=== PATIENT | male | born 1980 | race Caucasian/White ===

== ENCOUNTER → 2016-12-28 | Day surgery (SDC) | payer OTHER ==
[~2016-12-28] MED LIST: APRISO PO; CANASA1000 MG RC; FENTANYL CITRATE/PF 100MCG/2 ML INJ ONE; MIDAZOLAM HCL 2 MG/2 ML VIAL ONE; PANTOPRAZOLE SO40 MG PO; PROPOFOL IV EMULSION 10 MG/ML 20 ML VIAL ONE; simvastatin PO
--- NOTE | 2016-12-29 09:33 | Operative Report ---
DATE OF PROCEDURE: December 28, 2016 REFERRING PHYSICIAN: Dr. Apollo Razo. PROCEDURE PERFORMED: Esophagogastroduodenoscopy with biopsies. INDICATIONS FOR ESOPHAGOGASTRODUODENOSCOPY: History of duodenal adenoma. MEDICATION: Patient was done under MAC. Please see anesthesiologist's note. PROCEDURE: With patient in the left lateral decubitus position, flexible fiberoptic Olympus gastroscope was introduced into the esophagus under direct visualization without any difficulty. The esophagus appeared to be within normal limits. The scope was then advanced with ease into the stomach and there was some patchy erythema noted in the distal body and proximal antrum. Pylorus was of normal contour and shape. Was intubated with ease and the scope was advanced all the way to the 2nd portion of the duodenum. There was a focal prominence of one fold in the proximal 2nd portion that was biopsied, but the rest of the duodenum appeared to be within normal limits as was the duodenal bulb. The scope was then withdrawn back into the stomach and retroflexed and the mucosa overlying the fundus and the cardia appeared to be within normal limits. The scope was then straightened out. The stomach was decompressed. Scope was subsequently withdrawn. Patient tolerated the procedure well. IMPRESSION: 1. Normal esophagus. 2. Gastritis, minimal. 3. Prominent fold proximal 2nd portion, biopsied. PLAN: Follow up histology. Continue Protonix 40 mg 1 p.o. q.a.m. a.c. Job#: [id number] GH cc:APOLLO RAZO MD
== END | disposition home or self-care (01) ==
LOC: OR 15:18
PROVIDERS: ATTEND Internal Medicine Gastroenterology
DX: D13.2 Benign neoplasm of duodenum (principal); K29.70 Gastritis, unspecified, without bleeding; K31.89 Other diseases of stomach and duodenum; K21.9 Gastro-esophageal reflux disease without esophagitis; K27.9 Peptic ulcer, site unspecified, unspecified as acute or chronic, without hemorrhage or perforation
CPT/HCPCS: 43239; J2250

== ENCOUNTER → 2018-03-14 | Day surgery (SDC) | payer OTHER ==
[~2018-03-14] MED LIST changes: +HYOSCYAMINE SULFATE 0.5 MG/ML INJ ONE; +LIDOCAINE HCL 2% LOCAL INJ 5 ML SDV VIAL INJ ONE; +PROPOFOL IV EMULSION 10 MG/ML 50 ML VIAL ONE
--- NOTE | 2018-03-14 20:03 | Operative Report ---
DATE OF PROCEDURE: March 14, 2018 PROCEDURES PERFORMED 1. Esophagogastroduodenoscopy with biopsies. 2. Colonoscopy with biopsies. INDICATIONS FOR ESOPHAGOGASTRODUODENOSCOPY: History of duodenal adenoma, excessive bloating. INDICATIONS FOR COLONOSCOPY: Personal history of colon polyps, history of ulcerative proctitis. MEDICATION: Patient was done under MAC. Please see anesthesiologist's note. PROCEDURE: With the patient in left lateral decubitus position, flexible fiberoptic Olympus gastroscope was introduced into the esophagus under direct visualization without any difficulty. There was some patchy erythema noted in distal esophagus. The scope was then advanced with ease into the stomach. Mucosa overlying the antrum and the body revealed some patchy erythema and [id number] edema and biopsies were obtained and sent to stain for H. pylori. The pylorus was of normal contour and shape and was intubated with ease and the scope was advanced all way to the 2nd portion of the duodenum. Biopsies were obtained from the proximal 2nd portion to rule out sprue. There were 2 focal slightly raised areas in the proximal 2nd portion and those were biopsied. The scope was then withdrawn back into the stomach and retroflexed and mucosa overlying the fundus and the cardia appeared to be within normal limits. The scope was then straightened out. The stomach was decompressed. The scope was subsequently withdrawn. Patient tolerated the procedure well. IMPRESSION 1. Distal esophagitis, mild. 2. Gastritis, biopsied. Biopsies sent to stain for Helicobacter pylori. 3. Rule out sprue. 4. Slightly raised focal areas, proximal 2nd portion, biopsied. PLAN: Follow up histology. Increase Protonix to 40 mg 1 p.o. a.c. b.i.d. Patient was then turned around and after adequate lubrication of the anal canal, a flexible fiberoptic Olympus colonoscope was inserted into the rectum with ease and advanced all the way to the cecum. Prep overall was suboptimal to poor with moderate to large amount of retained fecal materials scattered throughout the colon. Whatever was visualized of the cecum appeared to be within normal limits. The ileocecal valve was intubated. The scope was advanced into the terminal ileum. Biopsies were obtained. The scope was then withdrawn back into the colon. It was then withdrawn slowly. Whatever was visualized of the mucosa overlying the ascending, transverse, and descending as well as the sigmoid grossly appeared to be within normal limits. There was some patchy erythema and low-grade edema noted in the rectum and biopsies were obtained. The scope was then retroflexed into the distal rectum and small internal hemorrhoids were noted, none of which was actively bleeding. The scope was then straightened out and was subsequently withdrawn. Patient tolerated the procedure well. IMPRESSION 1. Suboptimal to poor prep. 2. Proctitis, mild, biopsies obtained. 3. Internal hemorrhoids, none actively bleeding. PLAN: Follow up histology. Continue Canasa suppositories 1000 mg at bedtime and continue Apriso. Patient might benefit from a followup colonoscopy in 2 to 3 years. Job#: [id number] SAVI
== END | disposition home or self-care (01) ==
LOC: OR 14:51
PROVIDERS: ATTEND Internal Medicine Gastroenterology
DX: K51.90 Ulcerative colitis, unspecified, without complications (principal); K29.60 Other gastritis without bleeding; K29.80 Duodenitis without bleeding; K20.8 Other esophagitis; K62.89 Other specified diseases of anus and rectum; K31.89 Other diseases of stomach and duodenum; K59.00 Constipation, unspecified; K21.9 Gastro-esophageal reflux disease without esophagitis; K64.0 First degree hemorrhoids; R03.0 Elevated blood-pressure reading, without diagnosis of hypertension; Z68.30 Body mass index [BMI] 30.0-30.9, adult
CPT/HCPCS: 43239; 45380; J1980; J2001; J2250; J2704

== ENCOUNTER → 2020-05-16 | Day surgery (SDC) | payer OTHER ==
[~2020-05-16] MED LIST changes: -HYOSCYAMINE SULFATE 0.5 MG/ML INJ ONE; +METOCLOPRAMIDE HCL 10 MG/2ML VIAL ONE; -PROPOFOL IV EMULSION 10 MG/ML 50 ML VIAL ONE; +ZESTRIL10 MG PO
[2020-05-16 14:45] VITALS: BP 112/72
== END | disposition home or self-care (01) ==
LOC: OR 11:09
PROVIDERS: ATTEND Internal Medicine Gastroenterology
DX: K51.90 Ulcerative colitis, unspecified, without complications (principal); K29.50 Unspecified chronic gastritis without bleeding; K29.60 Other gastritis without bleeding; K29.80 Duodenitis without bleeding; K62.89 Other specified diseases of anus and rectum; K20.90 Esophagitis, unspecified without bleeding; K21.9 Gastro-esophageal reflux disease without esophagitis; K59.00 Constipation, unspecified; K64.8 Other hemorrhoids; R63.4 Abnormal weight loss; D72.820 Lymphocytosis (symptomatic); K59.09 Other constipation; R63.0 Anorexia; R19.8 Other specified symptoms and signs involving the digestive system and abdomen; I10 Essential (primary) hypertension; Z68.27 Body mass index [BMI] 27.0-27.9, adult; Z87.19 Personal history of other diseases of the digestive system
CPT/HCPCS: 43239; 45380; 93005; J2001; J2250; J2704; J2765; J3010; U0002 ×2; 45378

== ENCOUNTER → 2021-11-03 | Day surgery (SDC) | payer OTHER ==
[~2021-11-03] MED LIST changes: -FENTANYL CITRATE/PF 100MCG/2 ML INJ ONE; +HYOSCYAMINE SULFATE 0.5 MG/ML INJ ONE; -LIDOCAINE HCL 2% LOCAL INJ 5 ML SDV VIAL INJ ONE; -METOCLOPRAMIDE HCL 10 MG/2ML VIAL ONE; +VITAMIN D3 COM1 EACH PO; +VITAMIN E400 UNI1 PO; +ZINC CHELATED50 M2 PO
[2021-11-03 13:10] VITALS: BP 107/77
[2021-11-07 06:12] LABS: ENDOMYSIAL ANTIBODIES, IGA Negative (Negative)
== END | disposition home or self-care (01) ==
LOC: OR 09:41
PROVIDERS: ATTEND Internal Medicine Gastroenterology
DX: K29.70 Gastritis, unspecified, without bleeding (principal); K51.20 Ulcerative (chronic) proctitis without complications; K21.9 Gastro-esophageal reflux disease without esophagitis; K51.90 Ulcerative colitis, unspecified, without complications; K64.8 Other hemorrhoids; I10 Essential (primary) hypertension; Z01.810 Encounter for preprocedural cardiovascular examination; Z01.812 Encounter for preprocedural laboratory examination; Z20.822 Contact with and (suspected) exposure to COVID-19; Z79.899 Other long term (current) drug therapy
CPT/HCPCS: 0223U; 36415; 43239; 45378; 82784; 83516; 86256; 93005; C9113; J1980; J2250; J2704; 45380

== ENCOUNTER → 2024-07-29 | Outpatient (REF) | payer OTHER ==
[~2024-07-29] MED LIST changes: +DIATRIZOATE MEGL/DIATRIZOA SOD 30 ML BTL PO ONE; -HYOSCYAMINE SULFATE 0.5 MG/ML INJ ONE; +IOPAMIDOL 370 MG/ML 100 ML INFUS..BTL INJ ONE; +LEXAPRO20 MG PO; +LOSARTAN POTASS25 MG PO; -MIDAZOLAM HCL 2 MG/2 ML VIAL ONE; +MIRTAZAPINE15 MG PO; -PROPOFOL IV EMULSION 10 MG/ML 20 ML VIAL ONE
[2024-07-29 12:08] LABS: CREATININE, SERUM 1.16 mg/dL (0.72-1.25)
== END ==
LOC: CT 11:00
PROVIDERS: ATTEND Nurse Practitioner
DX: K51.90 Ulcerative colitis, unspecified, without complications (principal); R10.9 Unspecified abdominal pain
CPT/HCPCS: 36415; 74177; 82565; 84520; Q9963; Q9967